=== PATIENT | male | born 1955 | race Caucasian/White ===

== ENCOUNTER → 2019-07-27 | Outpatient (CLI) | payer MEDICARE ==
--- NOTE | 2019-07-28 16:07 | CT ---
EXAMINATION TYPE: CT chest wo con DATE OF EXAM: 07/27/2019 COMPARISON: Outside imaging report dated 12/31/2018 HISTORY: Solitary pulmonary nodule CT DLP: 567.2 mGycm. Automated Exposure Control for Dose Reduction was Utilized. TECHNIQUE: CT scan of the thorax is performed without IV contrast. FINDINGS: LUNGS: Previously seen 3 mm groundglass pulmonary nodule appears smaller in size now measuring approx imately 2 mm on series 4 image 23. This could be related to the small size given slice selection. No new pulmonary nodules are seen. No pulmonary masses. Linear scarring is seen of the medial left lung base on image 54 of series 4 and image 53. MEDIASTINUM: Lack of IV contrast is noted to limit evaluation for mediastinal and especially hilar ad enopathy. There are no definitive greater than 1 cm hilar or mediastinal lymph nodes. No cardiomega ly or pericardial effusion is seen. Moderate coronary calcifications are seen. Ascending thoracic aor ta is again aneurysmal measuring approximately 4.9 cm, similar to the prior. OTHER: There is a small hiatal hernia present. Severe atherosclerosis of the infrarenal abdominal aor ta is partially visualized. Mild to moderate multilevel degenerative changes of the spine. IMPRESSION: 1. Previously seen 3 mm groundglass pulmonary nodule in the left upper lobe appears smaller, possibly due to slice selection. No interval growth. Follow-up CT in 12 months is recommended to establish lo ng-term stability. 2. Stable size of the aneurysmal dilatation of the ascending thoracic aorta measuring 4.9 cm. 3. Small hiatal hernia.
== END | disposition home or self-care (01) ==
LOC: RADCTMAIN 08:35
PROVIDERS: ATTEND Family Medicine
DX: R91.1 Solitary pulmonary nodule (principal); I71.2 Thoracic aortic aneurysm, without rupture; K44.9 Diaphragmatic hernia without obstruction or gangrene
CPT/HCPCS: 71250

== ENCOUNTER → 2019-08-19 | Outpatient (CLI) | payer MEDICARE ==
--- NOTE | 2019-08-19 12:56 | ECHOF ---
Referral Reason:I71.2 thoracic aortic anerysm MEASUREMENTS -------- HEIGHT: 177.8 cm WEIGHT: 113.4 kg BP: RVIDd: 3.2 cm (< 3.3) IVSd: 1.9 cm (0.6 - 1.1) LVIDd: 3.4 cm (3.9 - 5.3) LVPWd: 1.7 cm (0.6 - 1.1) IVSs: 2.1 cm LVIDs: 2.5 cm LVPWs: 2.0 cm LA Diam: 3.8 cm (2.7 - 3.8) LAESV Index (A-L): 19.12 ml/m Ao Diam: 4.1 cm (2.0 - 3.7) AV Cusp: 2.1 cm (1.5 - 2.6) MV EXCURSION: 18.438 mm (> 18.000) MV EF SLOPE: 21 mm/s (70 - 150) EPSS: 1.6 cm MV E Fiedl: 1.11 m/s MV DecT: 107 ms MV A Fidel: 0.81 m/s MV E/A Ratio: 1.37 AR PHT: 1027 ms RAP: 5.00 mmHg RVSP: 21.70 mmHg TAPSE: 16.79 mm FINDINGS -------- Sinus rhythm. This was a technically adequate study. The left ventricular size is normal. There is severe concentric left ventricular hypertrophy. Ove rall left ventricular systolic function is normal with, an EF between 55 - 60 %. The right ventricle is normal in size. Normal LA size by volume 22+/-6 ml/m2. The right atrium is normal in size. Interatrial and interventricular septum intact. There is mild aortic valve sclerosis. There is mild aortic regurgitation. The mitral valve is normal. Mild tricuspid regurgitation present. Right ventricular systolic pressure is normal at < 35 mmHg. The pulmonic valve was not well visualized. The aortic root is dilated measuring 4.1cm. Normal inferior vena cava with normal inspiratory collapse consistent with estimated right atrial pre ssure of 5 mmHg. There is no pericardial effusion. CONCLUSIONS -------- 1. Sinus rhythm. 2. This was a technically adequate study. 3. The left ventricular size is normal. 4. There is severe concentric left ventricular hypertrophy. 5. Overall left ventricular systolic function is normal with, an EF between 55 - 60 %. 6. The right ventricle is normal in size. 7. Normal LA size by volume 22+/-6 ml/m2. 8. The right atrium is normal in size. 9. Interatrial and interventricular septum intact. 10. There is mild aortic valve sclerosis. 11. There is mild aortic regurgitation. 12. The mitral valve is normal. 13. Mild tricuspid regurgitation present. 14. Right ventricular systolic pressure is normal at < 35 mmHg. 15. The pulmonic valve was not well visualized. 16. The aortic root is dilated measuring 4.1cm. 17. Normal inferior vena cava with normal inspiratory collapse consistent with estimated right atrial pressure of 5 mmHg. 18. There is no pericardial effusion. MASSEUR/MASSEUSE: Jacki Jaimes RDCS
== END | disposition home or self-care (01) ==
LOC: RADECHMAIN 10:57
PROVIDERS: ATTEND Family Medicine
DX: I08.2 Rheumatic disorders of both aortic and tricuspid valves (principal); I77.819 Aortic ectasia, unspecified site
CPT/HCPCS: 93306